=== PATIENT | female | born 1970 | race Caucasian/White ===

== ENCOUNTER → 2016-10-16 | Outpatient (REF) ==
--- NOTE | 2016-10-16 16:20 | REP ---
Lumbar spine series: Partial study three views: History: Degenerative disc disease. Findings: Lumbar vertebral body heights are preserved. Alignment is normal. Pedicles and posterior elements are intact. Psoas margins are symmetric. Sacrum and SI joints are unremarkable. There is degenerative disc disease at multiple levels with disc space narrowing and spur formation at each level from T11-12 through L5-S1. Most prominently involved levels are L1-L2 and L5-S1. No malalignment is seen. No spondylolysis or spondylolisthesis noted. Impression: Degenerative disc disease diffusely. Signed by Kike Hackett MD 10/16/2016 04:48 P
--- NOTE | 2016-10-16 16:21 | REP ---
Right knee series: Five views: History: Degenerative disc disease. Findings: Five views of the right knee demonstrate normal bones, joints, and soft tissues. Joint spaces are preserved. Impression: Negative right knee radiographs. Signed by Kike Hackett MD 10/16/2016 04:48 P
== END ==
LOC: M SMT 11:31
PROVIDERS: ATTEND Internal Medicine
DX: M51.35 Other intervertebral disc degeneration, thoracolumbar region (principal); M51.37 Other intervertebral disc degeneration, lumbosacral region; M17.9 Osteoarthritis of knee, unspecified